=== PATIENT | male | born 1995 | race Caucasian/White ===

== ENCOUNTER 2017-02-25 19:40 | Emergency (ER) | payer OTHER ==
[~2017-02-25 19:40] MED LIST: EPINEPHRINE INJ 1 MG/10 ML DISP.SYRIN ONE
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
== END 2017-02-25 23:35 | disposition expired ==
LOC: ER 19:40
DX: I46.8 Cardiac arrest due to other underlying condition (principal); S09.90XA Unspecified injury of head, initial encounter; V89.2XXA Person injured in unspecified motor-vehicle accident, traffic, initial encounter
CPT/HCPCS: 99285; J0171